=== PATIENT | female | born 1960 | race Caucasian/White ===

== ENCOUNTER 2017-08-31 18:11 | Observation (INO) | payer MEDICARE, OTHER ==
[2017-08-31 18:37] LABS: #Basophils 0.1 thou/uL (0.0-0.2); #Lymphocytes 1.7 thou/uL (1.20-3.40); #Monocytes 0.9 thou/uL (0.11-0.59); #Neutrophils 10.8 thou/uL (1.40-6.50); %Basophils 0.5 % (0.0-1.0); %Eosinophils 0.3 % (0.0-10.0); %Lymphocytes 12.6 % (21.0-51.0); %Monocytes 6.9 % (0.0-10.0); Mean Platelet Volume 7.8 fL (7.4-10.4); Red Blood Cell (RBC) Count 4.06 mill/uL (4.20-5.40); White Blood Cell (WBC) Count 13.6 thou/uL (4.8-10.8)
[2017-08-31 19:00] LABS: ALT (SGPT) 29 U/L (8-55); AST (SGOT) 24 U/L (5-34); Alkaline Phosphatase 95 U/L (40-150); Anion Gap 14 mmol/L (10-20); BUN (Urea Nitrogen) 12 mg/dL (9.8-20.1); Bilirubin, Total 0.4 mg/dL (0.2-1.2); Calc. Creatinine Clearance 0 mL/min (70-130); Calcium 10.1 mg/dL (7.8-10.44); Carbon Dioxide 30 mmol/L (22-29); Chloride 99 mmol/L (98-107); Estimated GFR-MDRD 60; Globulin 4.4 g/dL (2.4-3.5); Protein, Total 8.4 g/dL (6.0-8.3)
[2017-08-31 19:04] LABS: Troponin I Less than 0.010 ng/mL (< 0.028)
--- NOTE | 2017-08-31 19:40 | RAD ---
CHEST ONE VIEW: History: Chest pain. Comparison: 10-01-05 FINDINGS: Cardiac silhouette is magnified by projection. Pulmonary vasculature is unremarkable. Mediastinum is midline. There is no lobar consolidation or evidence of pneumothorax. IMPRESSION: No active cardiopulmonary abnormalities are demonstrated. POS: H
[2017-08-31] MEDS ORDERED: Nitroglycerin 0.4 MG TAB (25 Tab Bottle) ONE (20:00)
[2017-08-31] MEDS ORDERED: Ondansetron ODT 4 MG TAB SL PRN (21:38)
[2017-08-31] MEDS ORDERED: Acetaminophen 325 MG TAB PO PRN ×2 (21:38→21:59)
[2017-08-31] MEDS ORDERED: Ondansetron HCl/PF 4 MG/2 ML Vial IVP PRN (21:38)
[2017-08-31] MEDS ORDERED: Ondansetron ODT 4 MG TAB PO PRN (21:59)
[2017-08-31] MEDS ORDERED: Senokot 8.6 MG TAB PO PRN (21:59)
[2017-08-31 22:40] LABS: Troponin I Less than 0.010 ng/mL (< 0.028)
[2017-09-01 02:03] LABS: Troponin I Less than 0.010 ng/mL (< 0.028)
--- NOTE | 2017-09-01 02:08 | HP-2 ---
LOCATION: [facility] in [place], [place] DATE OF ADMISSION: 08/31/2017 ADMITTING ATTENDING: Rhea Meyers M.D. COSIGNER: Rhea Meyers M.D. DATE OF SERVICE: 08/31/2017 CODE STATUS: FULL PRIMARY CARE PHYSICIAN: Pauline A&Carlos physician, Edwin Muniz M.D. RESIDENT PHYSICIAN: Emery Gasca DO HISTORY: Provided by patient. CHIEF COMPLAINT: Chest pain. HISTORY OF PRESENT ILLNESS: Patient is a 56-year-old female with a past medical history of schizophr enia, essential thrombocytosis, hyperlipidemia, osteoporosis, hypothyroidism, dysphagia, GERD and pem phigus vulgaris who presented with a 2-month history of intermittent chest pain, which she states is located centrally in the epigastric area. She reports that the pain is not worsened or remitted by a nything in particular. She has not tried any over the counter substances to relieve the pain. She h ad no associated shortness of breath, nausea, vomiting, diaphoresis, diarrhea, constipation, congesti on or pleuritic type chest pain. The patient did report a 2-week history of dry cough. The pain was not reproducible with palpation. In the ER, the patient was given 81 mg of aspirin and 0.4 mg and Nitrostat. Of note, the patient has been prescribed Protonix for GERD. However, she reports that she has not been taking the medication . PAST MEDICAL HISTORY: 1. Presbyesophagus. 2. Dysphagia. 3. Dehydration. 4. Pemphigus vulgaris. 5. Schizophrenia. 6. Essential thrombocytosis. 7. Mixed hyperlipidemia. 8. Osteoporosis. 9. Iron deficiency anemia. 10. Vitamin D deficiency. 11. Hypothyroidism. 12. Gastroesophageal reflux disease. PAST SURGICAL HISTORY: None. ALLERGIES: No known drug allergies. MEDICATIONS: 1. Risperdal 25 mg every 2 weeks. 2. Levothyroxine 88 mcg daily. 3. Bupropion extended release 300 mg q.24 h. 4. Vitamin D3 of 400 units b.i.d. 5. Benztropine mesylate 0.5 mg 1 tab b.i.d. 6. Pantoprazole sodium 40 mg delayed release 1 tab p.o. daily. 7. Calcitrate 950 mg oral tablet, take 1 tab by mouth b.i.d. FAMILY HISTORY: None. SOCIAL HISTORY: Nonsmoker, nondrinker. Denies drugs. REVIEW OF SYSTEMS: General: Denies fever, chills, sleep changes, night sweats, fatigue. Eyes: Denies vision change or eye pain. ENT: Denies nasal congestion, rhinorrhea, sore throat. Respiratory: Complains of cough . Denies congestion, shortness of breath. Cardiovascular: Complains of chest pain. Denies palpita tions, edema, or orthopnea. Gastrointestinal: Complains of nausea and vomiting x1. Resolves after yesterday morning. Denies diarrhea, constipation, abdominal pain. Genitourinary: Denies incontinen ce, dysuria, polyuria. Skin: No rashes or lesions noted. Musculoskeletal: Denies pain, tenderness , arthritis and arthralgias. PHYSICAL EXAMINATION: VITAL SIGNS: Blood pressure 130/86, pulse 103, respiratory rate 15, T-max 98.9, pulse oximetry 100% on room air, current weight 86 kilograms. GENERAL: The patient is alert and oriented, in no acute distress. Well-developed, obese, and approp riately interactive. EYES: Pupils equal, round, reactive to light with accommodation. Extraocular muscles are intact. C onjunctivae are within normal limits. ENT: Oropharynx is within normal limits. NECK: Supple, without lymphadenopathy. No thyromegaly. CARDIOVASCULAR: Regular rate and rhythm. No murmurs, rubs or gallops. Radial pulse 2+. Pedal puls e 2+. RESPIRATORY: Normal effort, no retractions. Lungs clear to auscultation bilaterally. SKIN: Warm and dry. No cyanosis. ABDOMEN: Soft, nontender. Normoactive bowel sounds in all 4 quadrants. No masses, distention or or ganomegaly. EXTREMITIES: No clubbing, cyanosis or edema. MUSCULOSKELETAL: Structure within normal limits. Tone within normal limits. NEUROLOGIC: No focal deficits. The patient is moving all extremities. GCS 15. PSYCHIATRIC: Appropriate and interactive. LABORATORY DATA: White blood cell count 13.6, hemoglobin 13.5, hematocrit 40, platelets 440. Sodium 139, potassium 3.7, chloride 99, bicarbonate 30, BUN 12, creatinine 0.96, glucose 130, calcium 10.1, total protein 8.4, albumin 4.0, AST 24, ALT 29, alkaline phosphatase 95, total bilirubin 0.4. CK-MB 1.1, troponin less than 0.010. The chest x-ray done in the ER showed no acute cardiopulmonary abnormalities. ASSESSMENT AND PLAN: 1. Atypical chest pain. We will admit to observation on telemetry. The patient will be continued o n 325 mg aspirin daily as well as atorvastatin 40 mg p.o. at bedtime. We will repeat a morning EKG a nd trend troponins x3. We will repeat a BMP in the morning as well as CBC. We will check a TSH, mag nesium, and phosphorus. The patient will be placed on a heart healthy diet. Vital signs per unit ro utine. 2. Leukocytosis 13.6. We will trend with a repeat CBC. Chest x-ray is negative. The patient has n o complaints of dysuria. There is no evidence of acute infection. The patient's vitals are otherwis e stable. We will repeat morning CBC and continue to trend. No antibiotics at this time. 3. Thrombocytosis. Platelets currently 440, which is around the patient's baseline. We will repeat a CBC. 4. Gastroesophageal reflux disease. The patient will be given 40 mg of Protonix daily. 5. Schizophrenia. The patient will be continued on home medications. 6. Hyperlipidemia. Continue home medications. 7. Osteoporosis. Continue home medications. 8. Vitamin D deficiency. Continue home medications. 9. Hypothyroid. Continue home medications. 10. Prophylaxis. The patient will be given Protonix p.o. and placed in SCDs for GI and deep venous thrombosis prophylaxis respectively. DISPOSITION AND LENGTH OF HOSPITAL STAY: The patient is stable. Estimated length of stay less than or equal 2 days. Symptomatic medication will be provided. History and physical exam as well as management was discussed with Dr. Rhea Meyers who agrees w ith the above history, physical exam, assessment and plan unless otherwise noted in her addendum.
[2017-09-01 05:29] LABS: #Eosinphils 0.1 thou/uL (0.0-0.7); #Lymphocytes 2.8 thou/uL (1.20-3.40); #Neutrophils 7.8 thou/uL (1.40-6.50); %Basophils 0.2 % (0.0-1.0); %Eosinophils 1.2 % (0.0-10.0); %Lymphocytes 23.4 % (21.0-51.0); %Monocytes 8.9 % (0.0-10.0); Hematocrit 34.2 % (36.0-47.0); Mean Platelet Volume 7.8 fL (7.4-10.4); White Blood Cell (WBC) Count 11.7 thou/uL (4.8-10.8)
[2017-09-01 05:45] LABS: Anion Gap 8 mmol/L (10-20); BUN (Urea Nitrogen) 11 mg/dL (9.8-20.1); Calc. Creatinine Clearance 92 mL/min (70-130); Calcium 8.9 mg/dL (7.8-10.44); Carbon Dioxide 27 mmol/L (22-29); Chloride 106 mmol/L (98-107); Estimated GFR-MDRD 74; Phosphorus 3.1 mg/dL (2.3-4.7)
[2017-09-01] MEDS ORDERED: Potassium Chloride 20 MEQ TAB PO SCH (07:15)
[2017-09-01] MEDS ORDERED: Lidocaine 2% Viscous Solution 20 ML, Aluminum & Magnesium Hydroxide 30 ML, Donnatal Eli... SSW SCH ×3 (07:30)
[2017-09-01] MEDS ORDERED: Aspirin 325 MG TAB PO SCH (08:00)
--- NOTE | 2017-09-01 10:34 | ADD-HP ---
REASON FOR ADMISSION/CHIEF COMPLAINT: Chest pain. HISTORY OF PRESENT ILLNESS: The patient is a 55-year-old female with past medical history of schizop hrenia, GERD, hypothyroidism, hyperlipidemia, osteoporosis who presented to the ER with a 2 month his tory of intermittent chest pain that was located in the center of her chest and her epigastric area. She notes that the pain is worse when she is eating her trying to swallow. She denies shortness of breath, nausea, vomiting, diaphoresis, palpitations, diarrhea, or pleuritic chest pain. The patient is supposed to be on Protonix for GERD, but she has not been taking the medication. This morning, he r cardiac enzymes have been negative. She was eating breakfast this morning and states that she only has pain when she tries to swallow. She has a history of presbyesophagus. The patient has been res tarted on her Protonix. She was able to eat breakfast this morning. We discussed trying to avoid fo ods that are difficult to swallow and take frequent drinks after each bite. The patient's chest pain does not appear to be cardiac in nature. She is being placed back on Protonix b.i.d. and will be di scharged to follow up with Dr. Muniz as an outpatient. I have reviewed and discussed the history, physical, assessment and plan done by Dr. Gasca and radha harrison pertinent portions myself. I agree with his dictation.
[2017-09-01 11:14] VITALS: BP 122/70; TEMP 97.6
--- NOTE | 2017-09-01 11:49 | PDOC.FM ---
- Subjective Subjective: Pt at rest currently. Denies any chest pain over night. No other concerns at this time. Nurse notes pt places pills, food & water on her tongue and immediately spits them out. after re-instruction, swallows normally without concerns. - Objective MAR Reviewed: Yes Vital Signs & Weight: Vital Signs (12 hours) Temp Pulse Resp BP BP Pulse Ox 09/01/17 10:58 97.6 F 91 16 122/70 92 L 09/01/17 08:00 98.6 F 85 16 09/01/17 07:10 98.6 F 85 16 117/63 93 L 09/01/17 04:00 84 18 109/59 L 94 L Weight Weight 75.16 kg I&O: 08/31/17 09/01/17 09/02/17 06:59 06:59 06:59 Intake Total 240 Balance 240 Result Diagrams: 09/01/17 04:08 09/01/17 04:08 EKG Reviewed by me: Yes (single inverted T wave in V1, otherwise NSR, no ischemia) Radiology Reviewed by me: Yes <Samanta Whitlock - Last Filed: 09/01/17 11:52> - Objective Vital Signs & Weight: Vital Signs (12 hours) Temp Pulse Resp BP Pulse Ox 09/01/17 10:58 97.6 F 91 16 122/70 92 L 09/01/17 08:00 98.6 F 85 16 09/01/17 07:10 98.6 F 85 16 117/63 93 L Weight Weight 75.16 kg I&O: 08/31/17 09/01/17 09/02/17 06:59 06:59 06:59 Intake Total 240 Balance 240 Result Diagrams: 09/01/17 04:08 09/01/17 04:08 <Rhea Meyers - Last Filed: 09/01/17 16:45> Phys Exam - Physical Examination Constitutional: NAD HEENT: PERRLA, moist MMs Neck: no JVD, supple Respiratory: no wheezing, clear to auscultation bilateral Cardiovascular: RRR, no significant murmur Gastrointestinal: soft, non-tender, no distention, positive bowel sounds Musculoskeletal: no edema Neurological: non-focal Psychiatric: A&O x 3 Deviation from normal: bizarre, flattened affect <Samanta Whitlock - Last Filed: 09/01/17 11:52> Dx/Plan (1) Dysphagia Code(s): R13.10 - DYSPHAGIA, UNSPECIFIED Status: Acute QualifierTitle: Dysphagia type: oral phase Qualified Code(s): R13.11 - Dysphagia, oral phase Plan: Etiology of chest 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 EGD performed 2 months prior showed no pathology. ACS has been ruled out with negative troponins x 3 and EKG not c/w infarct or ischemia. Recommend continuing protonix as prescribed and avoiding dry/difficult to swallow foods. F /U with PCP. Stable for discharge. (2) GERD (gastroesophageal reflux disease) Code(s): K21.9 - GASTRO-ESOPHAGEAL REFLUX DISEASE WITHOUT ESOPHAGITIS Status: Acute QualifierTitle: Esophagitis presence: without esophagitis Qualified Code( s): K21.9 - Gastro-esophageal reflux disease without esophagitis Plan: Continue protonix for symptomatic relief. (3) Hypothyroidism Code(s): E03.9 - HYPOTHYROIDISM, UNSPECIFIED Status: Acute QualifierTitle: Hypothyroidism type: acquired Qualified Code(s): E03.9 - Hypothyroidism, unspecified Plan: therapeutic synthroid (4) Schizophrenia Code(s): F20.9 - SCHIZOPHRENIA, UNSPECIFIED Status: Acute QualifierTitle: Schizophrenia type: unspecified Qualified Code(s): F20.9 - Schizophrenia, unspecified Plan: Likely cause of psychogenic dysphagia. continue meds and conservative treatment as above. <Samanta Whitlock - Last Filed: 09/01/17 11:52> Attending Addendum - Attending Addendum I personally evaluated the patient and discussed the management with Dr. Whitlock. I agree with the History, Examination, Assessment and Plan documented above with any addition or exceptions noted below. The patient is feeling much better. Chest pain is non-cardiac in nature. Cardiac enzymes are negative. Placing pt back on protonix. Will discharge home and f/u with Dr. Muniz. <Rhea Meyers - Last Filed: 09/01/17 16:45>
--- NOTE | 2017-09-01 13:19 | DIS-2 ---
ADMITTING AND DISCHARGING ATTENDING: Dr. Rhea Meyers DISCHARGING RESIDENT: Dr. Samanta Whitlock DISCHARGE DIAGNOSES: 1. Psychogenic aphasia. 2. Gastroesophageal reflux disease. 3. Hypothyroidism. 4. Schizophrenia. 5. Osteoporosis. 6. Dysgeusia. DISCHARGE MEDICATIONS: NEW MEDICATIONS: Protonix 40 mg p.o. daily. CONTINUED MEDICATIONS: 1. Benztropine 0.5 mg 1 tab p.o. daily. 2. Wellbutrin XL 300 mg 1 tab p.o. daily. 3. Calcitrate 950 mg p.o. b.i.d. 4. Synthroid 75 mcg p.o. daily. 5. Risperdal Consta 25 mg IM q. 14 days. PROCEDURES: None. HISTORY OF PRESENT ILLNESS AND HOSPITAL COURSE: The patient is a 56-year-old female with p ast medical history significant for schizophrenia, hypothyroidism, and osteoporosis, as well as chron ic dysphagia who presents with a 2 month history of off and on chest pain which is centrally located substernal to epigastric in area which has been noted to worsen with swallowing pills and foods. The re are no associated symptoms of shortness of breath, nausea, vomiting, diaphoresis or pleuritic symp toms. She was admitted approximately two and a half months prior with similar symptoms, but ended up with a weight loss of greater than 10% of her body weight due to her psychogenic dysphagia. She is noted to have presbyesophagus on barium swallow and a small sliding hiatal hernia with marked GERD, b ut a normal EGD performed by GI previously. The patient was worked up at that time for ACS, which wa s negative. During her hospital stay, the patient was seen for essentially ACS rule out and was found to have neg ative troponins x3 with therapeutic TSH and normal laboratory studies. EKGs were performed which mike wed no infarct, minimal ST changes to include single lead ST-T-wave inversion, but otherwise normal s inus rhythm. The patient noted to have no events on telemetry overnight. Additionally, last hospita l stay, the patient was seen with speech pathologist who noted the psychogenic in nature of her dysph agia and a chronic symptom of dysgeusia. Of note, the patient has been off of her reflux medicines since 1 month after discharge from the hospital, therefore approximately 6 weeks without Protonix. Recommended the patient continue her Protonix and continue her diet with soft foods and increase liqu ids. The patient understood and plans to follow up outpatient with primary care physician, Dr. Muniz. DISPOSITION: Stable. DISCHARGE INSTRUCTIONS: 1. Location: Home. 2. Diet: Soft foods with increased liquids. 3. Activity: As tolerated. 4. Followup: Follow up with PCP, Dr. Muniz, within 1-2 weeks of discharge for outpatient followup.
[2017-09-01] MEDS ORDERED: Atorvastatin Calcium 40 MG TAB PO SCH (21:00)
--- NOTE | 2017-09-03 08:47 | EKG ---
Test Reason : Blood Pressure : / mmHG Vent. Rate : 091 BPM Atrial Rate : 091 BPM P-R Int : 124 ms QRS Dur : 080 ms QT Int : 396 ms P-R-T Axes : 031 012 035 degrees QTc Int : 487 ms Normal sinus rhythm Prolonged QT Abnormal ECG When compared with ECG of 31-AUG-2017 18:17, (Unconfirmed) Nonspecific T wave abnormality no longer evident in Anterolateral leads QT has lengthened Confirmed by Radha POLLARD ([id number]) on 09/03/2017 8:47:03 AM Referred By: KELSEY Confirmed By:Radha POLLARD
== END 2017-09-01 12:44 | disposition home or self-care (01) ==
LOC: ERS 18:11 → 2SW 20:30
PROVIDERS: ADMIT Family Medicine; ATTEND Family Medicine
DX: R47.01 Aphasia (principal); K21.9 Gastro-esophageal reflux disease without esophagitis; E03.9 Hypothyroidism, unspecified; F20.9 Schizophrenia, unspecified; M81.0 Age-related osteoporosis without current pathological fracture; R43.2 Parageusia; R07.2 Precordial pain; K22.8 Other specified diseases of esophagus; K44.9 Diaphragmatic hernia without obstruction or gangrene; D47.3 Essential (hemorrhagic) thrombocythemia; R13.10 Dysphagia, unspecified; L10.0 Pemphigus vulgaris; E78.2 Mixed hyperlipidemia; D50.9 Iron deficiency anemia, unspecified; Z79.899 Other long term (current) drug therapy
CPT/HCPCS: 71010; 80048; 80053; 82553; 83735; 84100; 84439; 84443; 84484 ×3; 85025 ×2; 90732; 93005 ×2; 99285; G0009; G0378 ×2; 36415; 90471; 93010; A4216

== ENCOUNTER 2018-08-10 07:43 | Outpatient (CLI) | payer MEDICARE, MEDICAID | END 2018-08-10 07:44 | disposition home or self-care (01) | LOC: BICMAMMO 07:43 | PROVIDERS: ATTEND Family Medicine | DX: Z12.31 Encounter for screening mammogram for malignant neoplasm of breast (principal) | CPT/HCPCS: 77063; 77067 ==

== ENCOUNTER 2018-12-16 09:12 | Observation (INO) | payer MEDICARE, OTHER ==
[2018-12-16 09:45] LABS: #Basophils 0.1 thou/uL (0.0-0.2); #Eosinphils 0.1 thou/uL (0.0-0.7); #Lymphocytes 1.4 thou/uL (1.20-3.40); #Monocytes 0.8 thou/uL (0.11-0.59); #Neutrophils 4.4 thou/uL (1.40-6.50); %Basophils 0.9 % (0.0-1.0); %Eosinophils 0.9 % (0.0-10.0); %Lymphocytes 20.9 % (21.0-51.0); %Neutrophils 65.3 % (42.0-75.0); Hemoglobin 8.6 g/dL (12.0-16.0); Mean Corpuscular HGB CONC 30.7 g/dL (32.0-36.0); Mean Corpuscular Hemoglobin 25.1 pg (27.0-31.0); Mean Corpuscular Volume 81.8 fL (78.0-98.0); Mean Platelet Volume 7.8 fL (7.4-10.4); Platelet Count 421 thou/uL (130-400); RBC Distribution Width 14.4 % (11.5-14.5); Red Blood Cell (RBC) Count 3.42 mill/uL (4.20-5.40); White Blood Cell (WBC) Count 6.7 thou/uL (4.8-10.8)
[2018-12-16 10:06] LABS: ALT (SGPT) 99 U/L (8-55); AST (SGOT) 118 U/L (5-34); Albumin 3.6 g/dL (3.5-5.0); Alkaline Phosphatase 120 U/L (40-150); Anion Gap 13 mmol/L (10-20); BUN (Urea Nitrogen) 10 mg/dL (9.8-20.1); Bilirubin, Total 0.4 mg/dL (0.2-1.2); CK (CPK) 42 U/L (29-168); Calc. Creatinine Clearance 0 mL/min (70-130); Calcium 9.1 mg/dL (7.8-10.44); Carbon Dioxide 22 mmol/L (22-29); Chloride 102 mmol/L (98-107); Estimated GFR-MDRD 49; Globulin 4.1 g/dL (2.4-3.5); Glucose 112 mg/dL (70-105); Lipase 8 U/L (8-78); Potassium 3.8 mmol/L (3.5-5.1); Protein, Total 7.7 g/dL (6.0-8.3); Sodium 133 mmol/L (136-145)
--- NOTE | 2018-12-16 10:17 | RAD ---
SINGLE VIEW OF THE CHEST: COMPARISON: 08/31/2017. HISTORY: Syncope. Fall with loss of consciousness at [facility]. FINDINGS: Single view of the chest shows a normal sized cardiomediastinal silhouette. There is no evidence of c onsolidation, mass, or pleural effusion. The bones are unremarkable. IMPRESSION: No evidence of acute cardiopulmonary disease. POS: [facility]
--- NOTE | 2018-12-16 10:30 | CT ---
CT BRAIN WITHOUT CONTRAST: COMPARISON: None. HISTORY: Syncope. Altered mental status while at [facility]. TECHNIQUE: Multiple contiguous axial images were obtained in a CT of the brain without contrast. FINDINGS: The brain is normal in morphology and attenuation without focal lesions or confluent areas of infarct ion. There is no evidence of hydrocephalus, intracranial hemorrhage, or extraaxial fluid collection. The calvarium and overlying soft tissues are unremarkable. The visualized paranasal sinuses and mast oid air cells are well aerated. IMPRESSION: No evidence of acute intracranial abnormality. POS: [facility]
[2018-12-16 12:59] LABS: Troponin I Less than 0.010 ng/mL (< 0.028)
--- NOTE | 2018-12-16 14:07 | PDOC.FPRHP ---
- History of Present Illness Chief Complaint: Syncope History of Present Illness: 58yo female with pmh of schizophrenia, GERD, hypothyroidism presents for syncope that happened this morning at [employer]. Was kneeling when she had LOC for 4 min. No postictal period, confusion last <1min. She hit her head on the back of the pew. She has no hx of seizure. No seizure-like activity while unconscious - denied tongue biting loss of urine/bowels. Has been feeling fine over the last week was feeling fine prior to syncopal episode. Denies chest pain, nausea , dizziness prior. Denies chest pain, dizziness, lightheadedness, headache, fevers. Has never had syncope before. Denies melena, blood in stool. Has been taking Protonix. No FH of seizures. Good PO intake over last few days. Reports no hx of low BPs. Upon reviewing clinic chart pt had positive FOBT in 2007 and had colonoscopy performed 12/07/2007 that was normal, recommended repeat follow up in 10 years. She has chronic anemia 2/2 blood loss listed as a problem. Her last Hgb in clinic on 07/13/18 was 11.2. ED Course: EKG- nml. Positive orthostatics. 1L NS. Hypotension resolved after fluids. Prolactin 88.22. FOBT neg. Trop neg x2. Hgb 8.6 - Allergies/Adverse Reactions Allergies Allergy/AdvReac Type Severity Reaction Status Date / Time No Known Drug Allergies Allergy Verified 08/31/17 22:24 - Home Medications Medication Instructions Recorded Confirmed Type Benztropine Mesylate 0.5 mg PO BID 06/13/17 12/16/18 History Calcium Citrate [Calcitrate] 950 mg PO BID #60 tab 06/16/17 12/16/18 Rx Citalopram [CeleXA] 20 mg PO QAM 12/16/18 12/16/18 History Levothyroxine Sodium 88 mcg PO 0600 12/16/18 12/16/18 History Metoclopramide HCl [Reglan] 10 mg PO TID PRN 12/16/18 12/16/18 History Paliperidone Palmitate [Invega 234 mg 12/16/18 History Sustenna] - History PMHx: Schizophrenia, essential thrombocytosis, pemphigus vulgaris, GERD, hypothyroid, HLD, OA, depression PSHx: None FHx: Unremarkable Social: Denies Tobacco, alcohol or drug use. Currently unemployeed - Review of Systems General: denies: fever/chills, weight/appetite/sleep changes Eyes: denies: eye pain, vision changes ENT: denies: nasal congestion, rhinorrhea Respiratory: denies: cough, congestion, shortness of breath Cardiovascular: denies: chest pain, palpitation Gastrointestinal: denies: nausea, vomiting, diarrhea, constipation, GI bleeding Skin: denies: rashes, lesions Musculoskeletal: denies: pain, stiffness, swelling Neurological: reports: syncope. denies: numbness, weakness Psychological: reports: depression - Vital signs BP: 121/70 HR: 67 RR: 16 Tmax: 98.1 Pox: 96% on RA Wt: 88.45kg - Physical Exam Constitutional: NAD, awake, alert and oriented, well developed HEENT: normocephalic and atraumatic, PERRLA, conjunctiva clear, no scleral icterus, grossly normal hearing, normal nasal mucosa, MMM, oropharynx clear, other (no pallor) Neck: supple, trachea midline, no bruits Heart: RRR, normal S1/S2, no murmurs/rubs/gallops Lungs: CTAB, no respiratory distress, good air movement, no wheezing Abdomen: soft, non-tender, bowel sounds present Musculoskeletal: normal structure, normal tone, ROM grossly normal Neurological: no focal deficit, CN II-XII intact, normal sensation Skin: no rash/lesions, good turgor, capillary refill <2 seconds Heme/Lymphatic: no petechia Psychiatric: normal mood and affect, good judgment and insight, intact recent and remote memory FMR H&P: Results - Labs Result Diagrams: 12/16/18 09:33 12/16/18 15:35 Lab results: WBC 6.7 thou/uL (4.8-10.8) 12/16/18 09:33 Hgb 8.6 g/dL (12.0-16.0) L 12/16/18 09:33 Hct 28.0 % (36.0-47.0) L 12/16/18 09:33 MCV 81.8 fL (78.0-98.0) 12/16/18 09:33 Plt Count 421 thou/uL (130-400) H 12/16/18 09:33 Neutrophils % 65.3 % (42.0-75.0) 12/16/18 09:33 Sodium 133 mmol/L (136-145) L 12/16/18 09:33 Potassium 3.8 mmol/L (3.5-5.1) 12/16/18 09:33 Chloride 102 mmol/L (98-107) 12/16/18 09:33 Carbon Dioxide 22 mmol/L (22-29) 12/16/18 09:33 BUN 10 mg/dL (9.8-20.1) 12/16/18 09:33 Creatinine 1.14 mg/dL (0.6-1.1) H 12/16/18 09:33 Glucose 112 mg/dL (70-105) H 12/16/18 09:33 Calcium 9.1 mg/dL (7.8-10.44) 12/16/18 09:33 Total Bilirubin 0.4 mg/dL (0.2-1.2) 12/16/18 09:33 AST 118 U/L (5-34) H 12/16/18 09:33 ALT 99 U/L (8-55) H 12/16/18 09:33 Alkaline Phosphatase 120 U/L (40-150) 12/16/18 09:33 Creatine Kinase 42 U/L (29-168) 12/16/18 09:33 B-Natriuretic Peptide 14.9 pg/mL (0-100) 12/16/18 09:35 Serum Total Protein 7.7 g/dL (6.0-8.3) 12/16/18 09:33 Albumin 3.6 g/dL (3.5-5.0) 12/16/18 09:33 Lipase 8 U/L (8-78) 12/16/18 09:33 - EKG Interpretation EKG: normal sinus rhythm, Rate (beats per minute): 76, with no ectopics, Conduction normal, ST segments normal, T waves normal, [place] normal, No other findings, Clinical impression: Normal EKG. - Radiology Interpretation CT scan - head Status: report reviewed by me Additional comment: No acute intracranial abnormality Chest x-ray Status: report reviewed by me Additional comment: No evidence of acute cardiopulm disease FMR H&P: A/P - Problem List (1) Syncope Current Visit: Yes Status: Acute Code(s): R55 - SYNCOPE AND COLLAPSE (2) Dysphagia Current Visit: No Status: Chronic Code(s): R13.10 - DYSPHAGIA, UNSPECIFIED Qualifiers: Dysphagia type: oral phase Qualified Code(s): R13.11 - Dysphagia, oral phase (3) GERD (gastroesophageal reflux disease) Current Visit: No Status: Chronic Code(s): K21.9 - GASTRO-ESOPHAGEAL REFLUX DISEASE WITHOUT ESOPHAGITIS Qualifiers: Esophagitis presence: without esophagitis Qualified Code(s): K21.9 - Gastro -esophageal reflux disease without esophagitis (4) Hypothyroidism Current Visit: No Status: Chronic Code(s): E03.9 - HYPOTHYROIDISM, UNSPECIFIED Qualifiers: Hypothyroidism type: acquired Qualified Code(s): E03.9 - Hypothyroidism, unspecified (5) Osteoporosis Current Visit: No Status: Chronic Code(s): M81.0 - AGE-RELATED OSTEOPOROSIS W/O CURRENT PATHOLOGICAL FRACTURE Qualifiers: Osteoporosis type: unspecified Presence of current pathological fracture: unspecified Qualified Code(s): M81.0 - Age-related osteoporosis without current pathological fracture (6) Schizophrenia Current Visit: No Status: Chronic Code(s): F20.9 - SCHIZOPHRENIA, UNSPECIFIED Qualifiers: Schizophrenia type: unspecified Qualified Code(s): F20.9 - Schizophrenia, unspecified (7) Presbyesophagus Current Visit: Yes Status: Chronic Code(s): K22.8 - OTHER SPECIFIED DISEASES OF ESOPHAGUS - Plan Ms Ortiz is a 58yo female with pmh of schizophrenia, hypothyroid, GERD presenting after syncopal episode. Syncope - likely 2/2 volume depletion as orthostatics were positive in ED and pt responded to fluid bolus. - Prolactin 88 however pt is on antipsychotic which can elevate this. No seizure activity reported. No hx of seizures - EKG, CXR nml. Trops neg x2 - Admit to tele obs for cardiac monitoring Chronic Iron def Anemia from chronic blood loss - Nml colonoscopy 2007. FOBT positive at that time - Nml EGD 06/15/17 with exception of prebyesophagus - HD stable. Consider GI consult if acute bleed overnight. - FOBT neg today - Asymptomatic - Continue to monitor with AM CBC Schizophrenia - Currently controlled with Invega monthly Transaminitis - Etiology unknown - Continue to monitor with daily CMP Hypothyroidism - Ordered TSH - Continue home synthroid GERD - Continue home protonix Essential thrombocytosis - 421 today Osteoarthritis Code Status: DNR DVT ppx: SCDs PCP: R[facility] ([facility]) FMR H&P: Upper Level - Pertinent history Rubia Ortiz is a 58 year old female who presents to the ED after a witnessed syncopal episode. Pt was at [employer] and was kneeling down when she suddenly felt weak and lightheaded. She fell and hit the back of her head and lost consciousness for 4-5 minutes per her friend who is present in the ED and witnessed the event. She denies any chest pain, dyspnea, headache, nausea, vomiting, shaking activity, loss of continence to bowel/bladder, tongue biting, or fatigue, confusion after the episode. This has never happened to her before. She was hypotensive on arrival to the ED. Per ER chart review, pt was fasting this mu-ism morning for mu-ism reasons and therefore did not eat this morning. She has a prior history of chronic anemia that has been worked up in the outpatient setting. She has had 2 negative colonoscopies. The most recent one was in 2007. - Pertinent findings Exam: General: alert and oriented x 3; in no distress Heart: regular rate and rhythm, no murmurs, rubs, or gallops. No carotid bruit. Lungs: clear to auscultation bilaterally. No crackles, wheezes, or rhonchi. Abdomen: soft, non-tender. Neuro: CN II-XII intact grossly. No focal motor or sensory deficits. No dysmetria or disdiadokinsesis. Labs as above. EKG: wnl, no arrhythmia or evidence of ischemia. - Plan Date/Time: 12/16/18 1404 IRonda, have evaluated this patient and agree with findings/plan as outlined by internal control consultant resident. Pertinent changes/additions are listed here. Syncope - etiologies include neurological (i.e seizure), cardiogenic (valvulopathy, arrthymia), metabolic (hypoglycemia), vasovagal, orthostatic, etc. - reportedly pt was orthostatic in ED and felt better after receiving fluids. May consider repeating orthostatic vitals in AM. - unlikely seizure given no shaking activity, no post-ictal state. Prolactin elevation likely secondary to Paliperidone. No CK elevation. - will order Echo for further eval. Chronic normocytic anemia. - Hgb 8.6 (down from 11 in 2017). No symptoms consistent with acute GI blood loss. FOBT negative. - will repeat iron studies. - pt due for outpatient colonoscopy. Elevated transaminases - no inciting injury. - may consider RUQ US. Chronic medical problems as described above.
[2018-12-16 14:51] LABS: Bilirubin Negative (Negative); Blood, Urine Negative (Negative); Clarity CLEAR (Clear); Glucose, Urine (Dipstick) Negative (Negative); Leukocyte Negative (Negative); Nitrite Negative (Negative); Protein, Urine (Dipstick) Negative (Neg-Trace); Specific Gravity, Urine 1.005 (1.002-1.036); Urobilinogen 0.2 mg/dL (0.2-1.0)
[2018-12-16 16:29] LABS: Troponin I Less than 0.010 ng/mL (< 0.028)
[2018-12-16] MEDS: Benztropine 1 MG TAB PO SCH (18:37)
[2018-12-16 18:40] VITALS: BMI 36.8
[2018-12-16 18:42] LABS: ALT (SGPT) 97 U/L (8-55); AST (SGOT) 112 U/L (5-34); Albumin 3.4 g/dL (3.5-5.0); Alkaline Phosphatase 109 U/L (40-150); Anion Gap 14 mmol/L (10-20); BUN (Urea Nitrogen) 9 mg/dL (9.8-20.1); Bilirubin, Total 0.3 mg/dL (0.2-1.2); Calc. Creatinine Clearance 86 mL/min (70-130); Calcium 8.9 mg/dL (7.8-10.44); Carbon Dioxide 22 mmol/L (22-29); Chloride 107 mmol/L (98-107); Estimated GFR-MDRD 58; Glucose 105 mg/dL (70-105); Protein, Total 7.4 g/dL (6.0-8.3); Sodium 139 mmol/L (136-145)
[2018-12-16] MEDS ORDERED: Benztropine 1 MG TAB PO SCH (21:00)
[2018-12-16] MEDS: Calcium Citrate 950 MG TAB PO SCH (21:23)
[2018-12-17 05:31] LABS: #Eosinphils 0.2 thou/uL (0.0-0.7); #Lymphocytes 1.8 thou/uL (1.20-3.40); #Monocytes 0.9 thou/uL (0.11-0.59); #Neutrophils 3.4 thou/uL (1.40-6.50); %Basophils 0.5 % (0.0-1.0); %Eosinophils 2.6 % (0.0-10.0); %Lymphocytes 28.2 % (21.0-51.0); %Monocytes 13.8 % (0.0-10.0); %Neutrophils 54.8 % (42.0-75.0); Hemoglobin 8.1 g/dL (12.0-16.0); Mean Corpuscular HGB CONC 31.3 g/dL (32.0-36.0); Mean Corpuscular Hemoglobin 25.7 pg (27.0-31.0); Mean Corpuscular Volume 82.2 fL (78.0-98.0); Mean Platelet Volume 7.8 fL (7.4-10.4); Platelet Count 421 thou/uL (130-400); RBC Distribution Width 14.4 % (11.5-14.5); Red Blood Cell (RBC) Count 3.16 mill/uL (4.20-5.40); White Blood Cell (WBC) Count 6.2 thou/uL (4.8-10.8)
[2018-12-17] MEDS: Levothyroxine Sodium 88 MCG TAB PO SCH (05:43)
[2018-12-17] MEDS: Benztropine 1 MG TAB PO SCH ×2 (05:43→17:30)
[2018-12-17 05:53] LABS: ALT (SGPT) 99 U/L (8-55); AST (SGOT) 116 U/L (5-34); Albumin 3.3 g/dL (3.5-5.0); Alkaline Phosphatase 107 U/L (40-150); Anion Gap 12 mmol/L (10-20); BUN (Urea Nitrogen) 10 mg/dL (9.8-20.1); Bilirubin, Total 0.3 mg/dL (0.2-1.2); Calc. Creatinine Clearance 84 mL/min (70-130); Calcium 8.9 mg/dL (7.8-10.44); Carbon Dioxide 24 mmol/L (22-29); Chloride 105 mmol/L (98-107); Estimated GFR-MDRD 55; Globulin 3.9 g/dL (2.4-3.5); Glucose 98 mg/dL (70-105); Potassium 4.1 mmol/L (3.5-5.1); Protein, Total 7.2 g/dL (6.0-8.3); Sodium 137 mmol/L (136-145)
--- NOTE | 2018-12-17 05:58 | PDOC.FM ---
- Subjective Subjective: Patient denies pain this AM, feeling well. No RUQ pain. Reports no use of alcohol, no past use of any illicit drugs. States she does not think she has ever been tested for hepatitis in the past. Does not recall history of elevated liver enzymes before. - Objective Vital Signs & Weight: Vital Signs (12 hours) Temp Pulse Resp BP BP Pulse Ox 12/17/18 03:14 97.9 F 81 20 111/57 L 92 L 12/16/18 23:45 98.6 F 94 20 96/55 L 92 L 12/16/18 19:22 95 12/16/18 19:19 98.2 F 79 20 137/63 96 12/16/18 19:15 98.3 F 86 20 126/62 97 Weight Weight 90.945 kg I&O: 12/15/18 12/16/18 12/17/18 05:59 06:59 06:59 Output Total 400 Balance -400 Result Diagrams: 12/17/18 04:54 12/17/18 04:54 Phys Exam - Physical Examination Constitutional: NAD HEENT: moist MMs Respiratory: no wheezing, clear to auscultation bilateral Cardiovascular: RRR, no significant murmur Gastrointestinal: soft, non-tender, positive bowel sounds Musculoskeletal: no edema, pulses present Neurological: non-focal, normal sensation, moves all 4 limbs Psychiatric: normal affect Skin: normal turgor, cap refill <2 seconds Dx/Plan (1) Syncope Code(s): R55 - SYNCOPE AND COLLAPSE Status: Acute (2) Presbyesophagus Code(s): K22.8 - OTHER SPECIFIED DISEASES OF ESOPHAGUS Status: Chronic (3) CKD (chronic kidney disease) stage 3, GFR 30-59 ml/min Code(s): N18.3 - CHRONIC KIDNEY DISEASE, STAGE 3 (MODERATE) Status: Chronic (4) GERD (gastroesophageal reflux disease) Code(s): K21.9 - GASTRO-ESOPHAGEAL REFLUX DISEASE WITHOUT ESOPHAGITIS Status: Chronic Qualifiers: Esophagitis presence: without esophagitis Qualified Code(s): K21.9 - Gastro -esophageal reflux disease without esophagitis (5) Hypothyroidism Code(s): E03.9 - HYPOTHYROIDISM, UNSPECIFIED Status: Chronic Qualifiers: Hypothyroidism type: acquired Qualified Code(s): E03.9 - Hypothyroidism, unspecified (6) Osteoporosis Code(s): M81.0 - AGE-RELATED OSTEOPOROSIS W/O CURRENT PATHOLOGICAL FRACTURE Status: Chronic Qualifiers: Osteoporosis type: unspecified Presence of current pathological fracture: unspecified Qualified Code(s): M81.0 - Age-related osteoporosis without current pathological fracture (7) Schizophrenia Code(s): F20.9 - SCHIZOPHRENIA, UNSPECIFIED Status: Chronic Qualifiers: Schizophrenia type: unspecified Qualified Code(s): F20.9 - Schizophrenia, unspecified - Plan Plan: Ms Ortiz is a 58yo female with pmh of schizophrenia, hypothyroid, GERD presenting after syncopal episode. Syncope - etiologies include neurological (i.e seizure), cardiogenic (valvulopathy, arrthymia), metabolic (hypoglycemia), vasovagal, orthostatic, etc. - reportedly pt was orthostatic in ED and felt better after receiving fluids. - Repeat orthostatic vitals this AM positive again. Will encourage waiting periods in between laying, sitting, and standing - EKG, CXR nml. Trops neg x2 - Prolactin 88, however pt is on antipsychotic which can elevate this. No seizure activity reported. No hx of seizures - Admitted to tele obs for cardiac monitoring, no events overnight - Echo for further eval pending Chronic Normocytic Anemia likely 2/2 Chronic Iron Deficiency Anemia - [facility] colonoscopy 2007. FOBT positive at that time - [facility] EGD 06/15/17 with exception of presbyesophagus - FOBT neg - Repeat iron studies pending - Pt due for outpt colonoscopy Schizophrenia - Currently controlled with Invega monthly Elevated Transaminases - Consider RUQ ultrasound - Continue to monitor with daily CMP - Consider Hep B/C screen if pt not tested in the past Hypothyroidism - TSH wnl - Continue home synthroid GERD - Continue home protonix Essential thrombocytosis - 421 today Osteoporosis Code Status: DNAR DVT ppx: SCDs PCP: HILARIO () Dispo: possibly D/c to home later today pending clinical picture changes. Patient will need outpatient colonoscopy as well as follow up for elevated liver enzymes.
[2018-12-17] MEDS ORDERED: Levothyroxine Sodium 88 MCG TAB PO SCH (06:00)
[2018-12-17] MEDS: Calcium Citrate 950 MG TAB PO SCH ×2 (09:21→20:48)
[2018-12-17] MEDS: Citalopram 20 MG TAB PO SCH (09:22)
--- NOTE | 2018-12-17 09:56 | HP ---
ADDENDUM: Please see the note by Dr. Mathis for which I agree. The patient was seen, evaluated, examined, and discussed with the residents at bedside in the emergency room. HISTORY OF PRESENT ILLNESS: A 58-year-old white female with schizophrenia, who had a syncopal spell today at [employer]. She was kneeling in [employer]. Apparently, she passed out, maybe hit her head slightly, but then was unconscious according to a friend, who is with her in the room for at least 4 minutes, then she came to, she was completely normal. They did not see any kind of seizure activity, tremor, or anything like that, postictal afterwards. The patient admits to more of long-term antipsychotics that was changed. She is slightly anemic and her liver functions are a little bit elevated. She is on proton pump inhibitors. Had a scope performed and sounds like had some gastritis. She states that she has had a colonoscopy before. No chest pain. No shortness of breath. No dyspnea on exertion, edema, or orthopnea. PAST MEDICAL HISTORY: Per the resident's history and physical for which I agree. PAST SURGICAL HISTORY: Per the resident's history and physical for which I agree. HOME MEDICATIONS: Per the resident's history and physical for which I agree. SOCIAL HISTORY: Per the resident's history and physical for which I agree. PHYSICAL EXAMINATION: Other than conjunctivae being pale. Exam is pretty normal. GENERAL: Affect seems normal. VITAL SIGNS: Stable. Blood pressure a little bit low at 100/60 range. HEENT: Otherwise, normal. CHEST: Clear. NECK: No lymphadenopathy. No thyromegaly in the neck. No bruits. CARDIOVASCULAR: Regular rate and rhythm. No murmurs or ectopy. ABDOMEN: Benign. NEURO: Normal. ASSESSMENT: Syncope. Differential diagnosis includes the possibility of seizure or sounds like a cardiac arrhythmia. A little worried about seizure activity considering how long they state that it lasted and because her prolactin level was extremely elevated, although it could be a side effect of medication, although it seems excessively high. Little unusual as she was postictal afterwards, though, but we will observe, put her on telemetry, monitor overnight, may get a Neurology opinion as well. Job ID: [id number]
[2018-12-17] MEDS: Sodium Chloride 0.9% 1,000 ML IV SCH ×2 (10:09→16:30)
[2018-12-17 10:29] LABS: Iron Binding Capacity, Total 306 mcg/dL (265-497)
[2018-12-17 10:30] LABS: Iron 17 ug/dL (50-170)
[2018-12-17 11:23] LABS: HBSAg Index 0.32 S/CO (0-0.99); Hep B Surf Ag Non-Reactive S/CO (NonReactive); Hep C IgG Ab Non-Reactive (NonReactive); Hep C Index 0.12 S/CO (0-0.79)
[2018-12-17 12:22] LABS: Reticulocyte Count 2.3 % (0.5-1.5)
--- NOTE | 2018-12-17 12:25 | PRG ---
DATE OF SERVICE: 12/17/2018 Ms. Ortiz is a pleasant 58-year-old lady, who had a possible syncopal episode at [employer] yesterday, lasting approximately 4 minutes. When presenting to our ER, she was found to be significantly anemic with a hemoglobin of 8.6, which after fluid rehydration dropped to 8.1 with hematocrit of 26.0. Her MCV is 82. She has a history of "iron deficiency anemia." She states she has been taking iron for the last year and had negative EGDs and colonoscopies within the last year. In the event, her hemoglobin has not significantly changed from her p.o. iron intake, suggesting poor absorption versus a mixed anemia. I recommend we go ahead and do a B12 and RBC folate levels in addition to her ferritin, which was low at 10. I would also recommend screening for celiac disease given the possibility of poor absorption of her iron. If this is the case, she may need to be treated with several courses of IV iron to treat her iron deficiency anemia. In the event, clinically this morning, she is awake, alert, in no distress at all. She also has some elevated liver enzymes, which we should investigate with at least some hepatitis screen as well as right upper quadrant ultrasound. Further workup will depend on the results of these initial exams. Job ID: [id number]
[2018-12-17 13:08] LABS: Folate (Folic Acid) 5.6 ng/mL (7.0-31.4)
[2018-12-17] MEDS ORDERED: Iron, Sodium Ferric Gluconate 250 MG in Sodium Chloride 0.9% 100 ML IVPB SCH (15:15)
[2018-12-17] MEDS ORDERED: Folic Acid 1 MG TAB PO SCH (16:00)
[2018-12-18] MEDS: Benztropine 1 MG TAB PO SCH (06:31)
[2018-12-18] MEDS: Levothyroxine Sodium 88 MCG TAB PO SCH (06:31)
--- NOTE | 2018-12-18 06:41 | PDOC.FM ---
- Subjective Subjective: Patient well appearing this morning, no complaints. Discussed her low folate and iron, as well as her elevated transaminases again. Pt reports her PCP came by to see her yesterday. - Objective Vital Signs & Weight: Vital Signs (12 hours) Temp Pulse Resp BP Pulse Ox 12/18/18 03:32 98 F 82 18 123/67 93 L 12/17/18 23:25 98.1 F 82 16 96/51 L 98 12/17/18 19:33 97.9 F 67 12 109/64 98 Weight Weight 113.126 kg I&O: 12/16/18 12/17/18 12/18/18 06:59 06:59 06:59 Intake Total 480 1600 Output Total 400 1000 Balance 80 600 Result Diagrams: 12/17/18 04:54 12/17/18 04:54 Phys Exam - Physical Examination Constitutional: NAD HEENT: moist MMs Neck: no nodes, supple Respiratory: no wheezing, no rales, no rhonchi, clear to auscultation bilateral diminished breath sounds at bases Cardiovascular: RRR, no significant murmur Gastrointestinal: soft, non-tender, no distention, positive bowel sounds Musculoskeletal: no edema, pulses present Neurological: non-focal, moves all 4 limbs Psychiatric: normal affect, A&O x 3 Skin: no rash, normal turgor, cap refill <2 seconds Dx/Plan (1) Syncope Code(s): R55 - SYNCOPE AND COLLAPSE Status: Acute (2) Presbyesophagus Code(s): K22.8 - OTHER SPECIFIED DISEASES OF ESOPHAGUS Status: Chronic (3) CKD (chronic kidney disease) stage 3, GFR 30-59 ml/min Code(s): N18.3 - CHRONIC KIDNEY DISEASE, STAGE 3 (MODERATE) Status: Chronic (4) GERD (gastroesophageal reflux disease) Code(s): K21.9 - GASTRO-ESOPHAGEAL REFLUX DISEASE WITHOUT ESOPHAGITIS Status: Chronic Qualifiers: Esophagitis presence: without esophagitis Qualified Code(s): K21.9 - Gastro -esophageal reflux disease without esophagitis (5) Hypothyroidism Code(s): E03.9 - HYPOTHYROIDISM, UNSPECIFIED Status: Chronic Qualifiers: Hypothyroidism type: acquired Qualified Code(s): E03.9 - Hypothyroidism, unspecified (6) Osteoporosis Code(s): M81.0 - AGE-RELATED OSTEOPOROSIS W/O CURRENT PATHOLOGICAL FRACTURE Status: Chronic Qualifiers: Osteoporosis type: unspecified Presence of current pathological fracture: unspecified Qualified Code(s): M81.0 - Age-related osteoporosis without current pathological fracture (7) Schizophrenia Code(s): F20.9 - SCHIZOPHRENIA, UNSPECIFIED Status: Chronic Qualifiers: Schizophrenia type: unspecified Qualified Code(s): F20.9 - Schizophrenia, unspecified - Plan Plan: Ms Ortiz is a 58yo female with pmh of schizophrenia, hypothyroid, GERD presenting after syncopal episode. Syncope - etiologies include neurological (i.e seizure), cardiogenic (valvulopathy, arrthymia), metabolic (hypoglycemia), vasovagal, orthostatic, etc. - reportedly pt was orthostatic in ED and felt better after receiving fluids. - Repeat orthostatic vitals this AM positive again. Will encourage waiting periods in between laying, sitting, and standing - EKG, CXR nml. Trops neg x2 - Prolactin 88, however pt is on antipsychotic which can elevate this. No seizure activity reported. No hx of seizures - Echo - EF 55-60%, E/A reversal suggesting diastolic dysfunction, mild - mod LA dilation Chronic Normocytic Anemia 2/2 Chronic Iron Deficiency Anemia and Folate Deficiency - Nml colonoscopy 2007. FOBT positive at that time - Nml EGD 06/15/17 with exception of presbyesophagus - FOBT neg - Fe low, folate low - Started folate supplementation yesterday, recommend continuing at discharge - Fe infusion yesterday - Celiac work up pending - Pt due for outpt colonoscopy Schizophrenia - Currently controlled with Invega monthly Elevated Transaminases - Consider RUQ ultrasound - Continue to monitor with daily CMP - Consider Hep B/C screen if pt not tested in the past Hypothyroidism - TSH wnl - Continue home synthroid GERD - Continue home protonix Essential thrombocytosis - 421 today Osteoporosis Code Status: DNAR DVT ppx: SCDs PCP: HILARIO ([facility]) Dispo: possibly D/c to home later today pending clinical picture changes. Patient will need outpatient colonoscopy, as well as follow up for elevated liver enzymes. Patient started on folate supplementation. Celiac work up pending.
[2018-12-18] MEDS: Citalopram 20 MG TAB PO SCH (08:04)
[2018-12-18] MEDS: Calcium Citrate 950 MG TAB PO SCH (08:04)
[2018-12-18] MEDS ORDERED: Folic Acid 1 MG TAB PO SCH (09:00)
--- NOTE | 2018-12-18 12:24 | PRG ---
DATE OF SERVICE: 12/18/2018 SUBJECTIVE: Ms. Ortiz continues to look and feel well. She is awake and alert this morning and continuing with her anemia workup, we found she also had low folate level and we started folate therapy. We are in the midst also working up her celiac disease. She received an intravenous iron infusion yesterday to boost her ferritin and iron levels. We will continue her workup for abnormal liver function test as an outpatient. She is ready for discharge today. Job ID: [id number]
[2018-12-18 12:31] VITALS: BP 113/58; TEMP 97.3
[2018-12-18 13:20] LABS: Folate,Hemolysate 226.5 ng/mL (Not Estab.); Hematocrit 25.4 % (34.0-46.6); RBC Folate Test Component 892 ng/mL (>498)
--- NOTE | 2018-12-19 14:22 | DIS ---
DATE OF ADMISSION: 12/16/2018 DATE OF DISCHARGE: 12/18/2018 RESIDENT: Viviane Tinajero MD. CONSULT: None. PROCEDURES: 1. Chest x-ray on 12/16/2018; impression, no acute cardiopulmonary disease. 2. Brain CT on 12/16/2018; impression, no evidence of acute intracranial abnormality. 3. Echocardiogram on 12/18/2018, ejection fraction 55% to 60%. E/A flow reversal noted suggestive of diastolic dysfunction. Normal right ventricular size and function. Left atrium is [id number] dilated. Normal right atrium size. Mild mitral regurgitation is present. Mild aortic regurgitation is noted. Structurally normal aortic valve. Mild tricuspid regurgitation. PRIMARY DIAGNOSIS: Syncope secondary to orthostatic hypotension. SECONDARY DIAGNOSES: 1. Chronic normocytic anemia secondary to chronic iron deficiency anemia. 2. Folate deficiency. 3. Schizophrenia. 4. Elevated transaminases. 5. Hypothyroidism. 6. Gastroesophageal reflux disease. 7. Essential thrombocytosis. 8. Osteoporosis. DISCHARGE MEDICATIONS: 1. Folic acid 1 mg p.o. daily. 2. Iron one tablet p.o. daily. 3. Pantoprazole 40 mg p.o. b.i.d. 4. Benztropine 0.5 mg p.o. b.i.d. 5. Calcitrate 950 mg p.o. b.i.d. 6. Paliperidone 234 mg. 7. Metoclopramide 10 mg p.o. t.i.d. p.r.n. for nausea. 8. Levothyroxine 88 mcg. 9. Citalopram 20 mg p.o. every morning. Discontinued medication, none. HISTORY OF PRESENT ILLNESS: This is a 58-year-old female with past medical history of schizophrenia, GERD, and hypothyroidism, presents for syncope that happened this morning while at [employer]. The patient was kneeling when she had loss of consciousness for 4 minutes. No vertigo, however, she had confusion lasting less than a minute. She hit her head on the back of the pew. Denied history of seizure. No shaking, tongue biting, or loss of urine or bowels. She states she has been feeling fine over the last week and was feeling fine prior to the syncopal episode. Denied chest pain, nausea, dizziness, lightheadedness, headache, or fever. Denied syncope in the past. Denied melena or hematochezia. Reports she is on Protonix. No family history of seizures. She has been eating well over the past few days and reports no history of low blood pressures. The patient had a colonoscopy performed in 2007 that was normal and repeat followup was due in 2018, which she is due for currently. She has history of chronic anemia secondary to blood loss listed as a problem in her chart. Her last hemoglobin in clinic was 11.2 on 07/13/2018. EKG is normal. Orthostatics are positive. Her hypotension resolved after fluids. FOBT was negative. Echo was done, which showed a normal ejection fraction with E/A reversal suggesting diastolic dysfunction. EF was 55% to 60%. The patient was encouraged to p.o. hydrate to improve her orthostatic hypotension. The patient was found to have iron and folate deficiency. The patient was started on daily folate supplementation and was given an iron infusion during her stay. A celiac workup was negative. The patient was recommended to follow up for outpatient colonoscopy for routine screening. FOBT was negative in the hospital. The patient was continued on home iron supplementation. The patient had elevated transaminases. Hepatitis B and hepatitis C screens were negative. We recommend outpatient workup for elevated transaminases. DISPOSITION: Stable. DISCHARGE INSTRUCTIONS: 1. Location, home. 2. Diet, regular diet. 3. Activity, as tolerated. 4. Follow up with Dr. Muniz within 1 week at [facility]. Recommend routine screening colonoscopy, continued iron and folate supplementation, and outpatient follow up for elevated transaminases. Job ID: [id number] MTDD
[2018-12-19 17:20] LABS: EliA Celiac New Method **** NEW METHOD ****; t-Transglutaminase (tTG) IgG Less than 0.6 EliAU/mL (<7 Negative)
--- NOTE | 2018-12-22 13:44 | EKG ---
Test Reason : SYNCOPE Blood Pressure : / mmHG Vent. Rate : 076 BPM Atrial Rate : 076 BPM P-R Int : 136 ms QRS Dur : 074 ms QT Int : 408 ms P-R-T Axes : 022 018 029 degrees QTc Int : 459 ms Normal sinus rhythm Normal ECG Confirmed by KARLO HSU, JANES ([id number]), commercial production editor TRICIA MCKEON ([id number] on 12/22/2018 1:43:46 PM Referred By: KARLO Confirmed By:JANES DIETRICH MD
== END 2018-12-18 13:20 | disposition home or self-care (01) ==
LOC: ERS 09:12 → 2SW 11:17
PROVIDERS: ADMIT Family Medicine; ATTEND Family Medicine
DX: I95.1 Orthostatic hypotension (principal); F20.9 Schizophrenia, unspecified; D50.9 Iron deficiency anemia, unspecified; D52.9 Folate deficiency anemia, unspecified; E03.9 Hypothyroidism, unspecified; K21.9 Gastro-esophageal reflux disease without esophagitis; R74.0 Nonspecific elevation of levels of transaminase and lactic acid dehydrogenase [LDH]; D47.3 Essential (hemorrhagic) thrombocythemia; M81.0 Age-related osteoporosis without current pathological fracture; Z79.899 Other long term (current) drug therapy
CPT/HCPCS: 70450; 71045; 80053; 81003; 82274; 82550; 82607; 82728; 82746; 82747; 83516; 83540; 83550; 83690; 83880; 84146; 84484 ×2; 85014; 85025; 85046; 86803; 86850; 86900; 86901; 87340; 93005; 93306; 96361; 96365; 96366; 99285; G0378 ×2; 36415; 84443; 96360; J2916; J7050

== ENCOUNTER 2019-01-14 06:35 | Outpatient (CLI) | payer MEDICARE, OTHER ==
--- NOTE | 2019-01-14 07:37 | ULT ---
FHepatic sonogram with duplex evaluation HISTORY: Abnormal liver function tests. FINDINGS: Echogenic stone is present within the gallbladder lumen. No gallbladder wall thickening or pericholecystic fluid. Common duct is upper limits of normal is 0.7 cm. Liver is diffusely echogenic without focal mass or intrahepatic biliary dilatation. No free fluid. Spleen is 11.4 cm in length without focal abnormality. Good color and spectral Doppler flow within the hepatic and splenic artery. Portal venous flow is tow ards the liver. Hepatic venous flow is towards the IVC. No hydronephrosis. Echogenicity near the central portion of the right kidney is 1.0 cm. No shadowing. This may represent a focal area of fat at the renal pelvis or an angiomyolipoma. IMPRESSION: Cholelithiasis. No evidence of acute biliary obstruction. Hepatic steatosis. No sonographic findings of portal venous hypertension.
== END 2019-01-14 06:36 | disposition home or self-care (01) ==
LOC: BICULT 06:35
PROVIDERS: ATTEND Family Medicine
DX: R74.0 Nonspecific elevation of levels of transaminase and lactic acid dehydrogenase [LDH] (principal); K80.20 Calculus of gallbladder without cholecystitis without obstruction; K76.0 Fatty (change of) liver, not elsewhere classified
CPT/HCPCS: 76705

== ENCOUNTER 2021-06-16 08:33 | Outpatient (CLI) | payer MEDICARE, MEDICAID | END 2021-06-16 08:34 | disposition home or self-care (01) | LOC: BICMAMMO 08:33 | PROVIDERS: ATTEND Family Medicine | DX: Z12.31 Encounter for screening mammogram for malignant neoplasm of breast (principal) | CPT/HCPCS: 77063; 77067 ==

== ENCOUNTER 2022-06-17 07:55 | Outpatient (CLI) | payer OTHER, MEDICAID | END 2022-06-17 07:56 | disposition home or self-care (01) | LOC: BICMAMMO 07:55 | PROVIDERS: ATTEND Family Medicine | DX: Z12.31 Encounter for screening mammogram for malignant neoplasm of breast (principal) | CPT/HCPCS: 77063; 77067 ==

== ENCOUNTER 2024-05-01 20:06 | Emergency (ER) | payer OTHER, MEDICAID ==
[2024-05-01 21:00] LABS: #Basophils 0.03 10x3/uL (0.0-0.2); %Basophils 0.3 % (0.0-1.0); %Eosinophils 0.4 % (0.0-10.0); %Lymphocytes 7.3 % (21.0-51.0); %Monocytes 6.3 % (0.0-10.0); %Neutrophils 85.1 % (42.0-75.0); Hematocrit 22.9 % (36.0-47.0); Hemoglobin 6.8 g/dL (12.0-16.0); Mean Corpuscular HGB CONC 29.7 g/dL (32.0-36.0); Mean Corpuscular Hemoglobin 24.2 pg (27.0-31.0); Mean Corpuscular Volume 81.5 fL (78.0-98.0); Mean Platelet Volume 10.2 fL (7.4-10.4); Platelet Count 545 10x3/uL (130-400); RBC Distribution Width 17.2 % (11.5-14.5); Red Blood Cell (RBC) Count 2.81 mill/uL (4.20-5.40)
[2024-05-01 21:11] LABS: Influenza A by NAA Not Detected (NotDetected); Influenza B by NAA Not Detected (NotDetected); SARS-CoV-2 NAA Rapid Test Not Detected (NotDetected)
[2024-05-01 21:14] LABS: ALT (SGPT) 9 U/L (8-55); AST (SGOT) 19 U/L (5-34); Albumin 3.4 g/dL (3.4-4.8); Alkaline Phosphatase 69 U/L (40-110); Anion Gap 14 mmol/L (10-20); BUN (Urea Nitrogen) 11 mg/dL (9.8-20.1); Bilirubin, Total 0.5 mg/dL (0.2-1.2); Calc. Creatinine Clearance 0 mL/min (70-130); Calcium 8.9 mg/dL (7.8-10.44); Carbon Dioxide 20 mmol/L (23-31); Chloride 106 mmol/L (98-107); Estimated GFR 48; Globulin 3.6 g/dL (2.4-3.5); Glucose 151 mg/dL (80-115); Potassium 3.9 mmol/L (3.5-5.1); Sodium 136 mmol/L (136-145)
[2024-05-02] MEDS ORDERED: Ondansetron PF 4 MG/2 ML Vial ONE (00:28)
== END 2024-05-02 03:16 | disposition home or self-care (01) ==
LOC: ERS 20:06
DX: D64.9 Anemia, unspecified (principal)
CPT/HCPCS: 0240U; 36430; 71045; 80053; 85025; 86850; 86900; 86901; 86920; 93005; J2405; P9016; 36415; 96361; 96374